=== PATIENT | male | born 1960 | race Caucasian/White ===

== ENCOUNTER 2017-01-31 21:33 | Inpatient (IN) | payer BC ==
[~2017-01-31] VITALS: Ht 167.6 cm; Wt 72.6 kg
[~2017-01-31 21:33] MED LIST: HYDR-4100 PO; METH750T3 PO; NEU300 PO; SERT100T PO
--- NOTE | 2017-01-31 21:43 | NUR ---
Patient to ER bed 1 to gown for evaluation. Side rails up. Report given to Lia MCCOLLUM.
[2017-01-31 21:48] VITALS: BP_SYST 137
--- NOTE | 2017-01-31 21:53 | NUR ---
Patient to ER C/O worsening symptoms. States that he has been sick for 2 weeks with cough and not feeling good, went to urgent care and got ABX shot and ABX RX but not getting any better. AAOx4, diminished lung sounds, no acute distress.
--- NOTE | 2017-01-31 22:26 | NUR ---
ER MD Segundo at bedside for evaluation
--- NOTE | 2017-01-31 23:05 | NUR ---
# 20 gauge angiocath placed to left ac. Use of asceptic technique. Opsite placed over site. Blood return noted. Blood for lab drawn from site. Flushed with 10 cc of normal saline. No evidence of infiltration noted. Patient tolerated well.
[2017-01-31] MEDS ORDERED: NACL 0.9% 1,000 ML IV ONE (23:06)
[2017-01-31] MEDS ORDERED: LEVOFLOXACIN 500 MG TABLET PO ONE (23:15)
[2017-01-31] MEDS ORDERED: IPRATROPIUM BROM 0.5 MG/2.5 ML VIAL.NEB (ATROVENT) IH ONE (23:15)
[2017-01-31] MEDS ORDERED: LevALBUTEROL HCL 1.25 MG/0.5 ML *CONC.* VIAL.NEB (XOPENEX CONC.) INH ONE (23:15)
[2017-01-31 23:35] LABS: HEMATOCRIT 47.2 % (36-54); HEMOGLOBIN 15.9 g/dL (14.0-18.0); MEAN CORPUSCULAR HEMOGLOBIN 31 pg (27-31); MEAN CORPUSCULAR HGB CONC 34 % (32-36); MEAN CORPUSCULAR VOLUME 91 fL (79.0-98.0); PLATELET COUNT (AUTO) 350 K/uL (130-430); RED BLOOD CELL COUNT(AUTO) 5.18 MIL/uL (4.2-6.2); RED CELL DISTRIBUTION WIDTH 14.7 % (9.0-15.0); WHITE BLOOD COUNT (AUTO) 27.4 K/uL (4.8-10.8)
[2017-01-31 23:41] LABS: CALCIUM 8.3 mg/dL (8.4-11.0); CREATININE 1.42 mg/dL (0.55-1.30); POTASSIUM 4.1 mmol/L (3.5-5.1)
[2017-01-31 23:46] LABS: ALBUMIN 3.7 g/dL (3.4-4.8); TOTAL BILIRUBIN 1.2 mg/dL (0.0-1.0); TOTAL PROTEIN, SERUM 7.3 g/dL (6.4-8.3)
[2017-01-31 23:50] LABS: ATYPICAL LYMPHOCYTES % 0 % (0-0); BAND % (MANUAL) 7 % (0-6); BASOPHILS % (MANUAL) 0 % (0-2); EOSINOPHILS % (MANUAL) 0 % (0-7); LYMPHOCYTES % (MANUAL) 8 % (20-46); MONOCYTES % (MANUAL) 3 % (0-11)
[2017-02-01] VITALS (8 sets, daily range): BP systolic 123–141
[2017-02-01] MEDS ORDERED: LR 1,000 ML IV ONE
[2017-02-01] MEDS ORDERED: IPRATROPIUM BROM 0.5 MG/2.5 ML VIAL.NEB (ATROVENT) INH PRN
[2017-02-01] MEDS ORDERED: ACETAMINOPHEN 325 MG TABLET PO PRN
[2017-02-01] MEDS ORDERED: TEMAZEPAM 15 MG CAPSULE PO PRN
[2017-02-01] MEDS ORDERED: ALBUTEROL SULFATE 0.083% 2.5 MG/3 ML VIAL.NEB INH PRN
--- NOTE | 2017-02-01 00:04 | NUR ---
Medication reconciliation completed with information provided by patient. Any prior medication reconciliation on file was reviewed and corrected.
--- NOTE | 2017-02-01 00:14 | NUR ---
Patient will be admitted to care of DR SAUCEDO. Admitted to [facility] IN unit. Will go to room 135. Belongings list completed. Summary report printed. Report given to CHUN.
--- NOTE | 2017-02-01 00:14 | NUR ---
Transfer to [facility]. IV present no sign or symptom of infiltration.
--- NOTE | 2017-02-01 00:25 | NUR ---
ADMISSION NOTE Received patient from ER via gurney under the care of Dr Clifton. Patient admitted with diagnosis of Pneumonia and COPD EXACERBATION . Patient is awake, alert, oriented X 4. Patient oriented to hospital room, call light, toileting, pain management and safety-teach back done. Patient informed that HIS nurse will be Anjali MCCOLLUM and that his room number is [id number]. Call light within reach. at bedside.
[2017-02-01] MEDS: HYDROcodone/ACETAMIN 10-325 MG TAB PO PRN ×2 (00:47→20:54)
--- NOTE | 2017-02-01 00:55 | NUR ---
PAGED PAGED STEPHEN HASKINS AT [phone] SPOKE WITH CHASE.
[2017-02-01] MEDS ORDERED: AZITHROMYCIN 500 MG/VIAL (ZITHROMAX) IV ONE (01:42)
--- NOTE | 2017-02-01 02:00 | NUR ---
Rounds Patient is currently resting in bed. No sings of distress noted.
[2017-02-01] MEDS: ALBUTEROL SULFATE 0.083% 2.5 MG/3 ML VIAL.NEB INH SCH ×4 (03:21→15:00)
[2017-02-01] MEDS: IPRATROPIUM BROM 0.5 MG/2.5 ML VIAL.NEB (ATROVENT) INH SCH ×4 (03:21→15:00)
--- NOTE | 2017-02-01 04:00 | NUR ---
Rounds Patient is currently resting in bed. call light is within reach.
--- NOTE | 2017-02-01 06:30 | NUR ---
Closing Note Report given to am RN. Patient is in stable condition. IV is on the LFA 20g running LR @80ml/hr. call light is within reach. Bed alarm is on.
--- NOTE | 2017-02-01 07:43 | NUR ---
AM Round: Received pt sitting up in bed. No acute signs of distress noted at this time. IV intact to LUE with no redness or swelling noted to site. Pt denies pain. Call light in reach. Continue to monitor pt closely
[2017-02-01] MEDS: cefTRIAXone 1 GM IVPB PREMIX 50 ML IV SCH ×2 (09:14→20:53)
--- NOTE | 2017-02-01 09:15 | NUR ---
RN Rounds: Am meds given per MD order. Pt tolerates well via IV. No acute signs of distress noted. Call light in reach. Bed alarm on. Continue to monitor.
[2017-02-01] MEDS ORDERED: SERTRALINE HCL 50 MG TABLET PO ONE (09:45)
[2017-02-01] MEDS ORDERED: GABAPENTIN 300 MG CAPSULE PO ONE (09:45)
[2017-02-01] MEDS ORDERED: METHOCARBAMOL 500 MG TABLET PO ONE (09:45)
[2017-02-01] MEDS ORDERED: PROMETHAZINE-DM 6.25 MG-15 MG/5 ML UDC PO PRN (10:00)
[2017-02-01] MEDS ORDERED: guaiFENesin ER 600 MG TAB PO ONE (11:15)
--- NOTE | 2017-02-01 11:56 | NUR ---
Rounds: Pt sitting semi-fowlers in bed. No acute signs of distress noted. IV intact and infusing antibiotic well at this time to LUE with no redness or swelling noted to site. Call light in reach. Continue to monitor pt closely.
[2017-02-01] MEDS ORDERED: FLUCONAZOLE 200 mg/ NS 100 ML IV ONE (12:00)
--- NOTE | 2017-02-01 13:36 | NUR ---
Rounds: Pt sitting semi-fowlers in bed. No acute signs of distress noted at this time. Breathing even and unlabored on room air. Call light in reach. Bed alarm on. Continue to monitor.
[2017-02-01] MEDS: METHOCARBAMOL 500 MG TABLET PO SCH ×3 (14:03→20:53)
[2017-02-01] MEDS: GABAPENTIN 300 MG CAPSULE PO SCH (14:05)
--- NOTE | 2017-02-01 15:24 | NUR ---
Rounds: Pt laying flat in bed and sleeping. Breathing even and unlabored on room air. No acute signs of distress noted at this time. IV intact to LUE with no redness or swelling noted to site. Call light in reach. Bed alarm on. Continue to monitor pt closely.
--- NOTE | 2017-02-01 17:15 | NUR ---
Rounds: Pt sitting semi-fowlers in bed. No acute signs of distress noted,. Pt is sleeping at this time, breathing even and unlabored on room air. Pt remains calm and cooperative and he is able to make needs known. Continue to monitor.
--- NOTE | 2017-02-01 18:54 | NUR ---
Closing Note: Pt sitting semi-fowlers in bed. No acute signs of distress noted at this time. IV intact to RUE SL and flushing well. Pt denies pain. Call light in reach. Family at bedside. Endorse plan of care to NOC RN.
--- NOTE | 2017-02-01 19:35 | NUR ---
OPENING NOTES RECEIVED REPORT FROM DAYSHIFT NURSE AT BEDSIDE. PATIENT IS RESTING IN SEMI-CASEY'S. KYLER CUTE S/S OF DISTRESS NOTED. FAMILY AT BEDSIDE. BED IN LOWEST POSITION, BED ALARM SET, CALL LIGHT WITHIN REACH.
[2017-02-01] MEDS: guaiFENesin ER 600 MG TAB PO SCH (20:53)
--- NOTE | 2017-02-01 21:24 | NUR ---
DR. SAUCEDO AWARE OF PT'S BLISTERS AWARE THAT PT'S POINTED OUT PT HAS "NEW BLISTERS" ON HIS RIGHT NECK AND ONE ON HIS RIGHT CHEEK. MD ORDERED TO CULTURE THEM. ORDERS IN PLACE.
[2017-02-01] MEDS: AZITHROMYCIN 500 MG in NS 250 ML IV SCH ×3 (23:28)
--- NOTE | 2017-02-01 23:30 | NUR ---
ROUNDS PATIENT IS SLEEPING COMFORTABLY. NO ACUTE SIGNS OR SYMPTOMS OF DISTRESS NOTED. VISIBLE RISE AND FALL OF CHEST, AUDIBLE SNORING. IV PATENT AND RUNNING. BED IN LOWEST POSITION, BED ALARM ON, CALL LIGHT WITHIN REACH. WILL CONTINUE TO MONITOR.
[2017-02-02] VITALS: BP_SYST 128
--- NOTE | 2017-02-02 01:30 | NUR ---
ROUNDS PATIENT IS IN PAIN /10 AND REQUESTING PAIN MEDICATION. PAIN MEDICATION PROVIDED ORDERED. NO ACUTE SIGNS OR SYMPTOMS OF DISTRESS NOTED. IV PATENT AND RUNNING. BED IN LOWEST POSITION, BED ALARM ON, CALL LIGHT WITHIN REACH. WILL CONTINUE TO MONITOR.
[2017-02-02] MEDS: HYDROcodone/ACETAMIN 10-325 MG TAB PO PRN ×5 (02:00→19:24)
--- NOTE | 2017-02-02 03:30 | NUR ---
ROUNDS PATIENT IS SLEEPING COMFORTABLY. VISIBLE RISE AND FALL OF CHEST, AUDIBLE SNORING. NO ACUTE SIGNS OR SYMPTOMS OF DISTRESS NOTED. IV PATENT AND RUNNING. BED IN LOWEST POSITION, BED ALARM ON, CALL LIGHT WITHIN REACH. WILL CONTINUE TO MONITOR.
[2017-02-02] MEDS: ALBUTEROL SULFATE 0.083% 2.5 MG/3 ML VIAL.NEB INH SCH ×8 (03:31→23:00)
[2017-02-02] MEDS: IPRATROPIUM BROM 0.5 MG/2.5 ML VIAL.NEB (ATROVENT) INH SCH ×8 (03:31→23:00)
[2017-02-02 04:00] VITALS: BP_SYST 139; BP_SYST 141
--- NOTE | 2017-02-02 05:50 | NUR ---
RADIOLOGY PATIENT PICKED UP TO BE TAKEN FOR A 2-DAY XRAY,
--- NOTE | 2017-02-02 06:40 | NUR ---
CLOSING NOTES NO S/S OF DISTRESS NOTED. WILL ENDORSE CARE TO DAY SHIFT NURSE. FALL PRECAUTIONS IN PLACE, CALL LIGHT WITHIN REACH.
[2017-02-02 07:48] LABS: ALBUMIN 2.7 g/dL (3.4-4.8); CALCIUM 7.9 mg/dL (8.4-11.0); CREATININE 0.93 mg/dL (0.55-1.30); TOTAL BILIRUBIN 0.3 mg/dL (0.0-1.0)
[2017-02-02 08:00] VITALS: BP_SYST 142
--- NOTE | 2017-02-02 08:00 | NUR ---
PATIENT A/OX4, AMBULATORY. IV ON LEFT ARM, #20, SL. AMBULATORY. V/S STABLE. NO SIGNS OF DISTRESS NOTED. CALL LIGHT IN PLACE, BED AT LOWEST POSITION, WILL CONTINUE TO MONITOR.
[2017-02-02 08:08] LABS: BASOPHILS % (AUTO) 0.3 % (0.0-2.0); EOSINOPHILS # (AUTO) 0.1 K/uL (0.0-0.4); EOSINOPHILS % (AUTO) 1.1 % (0.0-4.0); HEMATOCRIT 44.3 % (36-54); HEMOGLOBIN 14.2 g/dL (14.0-18.0); LYMPHOCYTES # (AUTO) 2.3 K/uL (1.0-5.5); LYMPHOCYTES % (AUTO) 29.1 % (20.5-51.5); MEAN CORPUSCULAR HEMOGLOBIN 30 pg (27-31); MEAN CORPUSCULAR HGB CONC 32 % (32-36); MONOCYTES # (AUTO) 0.5 K/uL (0.0-1.0); MONOCYTES % (AUTO) 6.4 % (1.7-9.3); NEUTROPHILS # (AUTO) 5.1 K/uL (1.8-7.7); NEUTROPHILS % (AUTO) 63.1 % (40.0-70.0); PLATELET COUNT (AUTO) 304 K/uL (130-430); RED BLOOD CELL COUNT(AUTO) 4.77 MIL/uL (4.2-6.2); RED CELL DISTRIBUTION WIDTH 14.8 % (9.0-15.0)
[2017-02-02 08:14] LABS: MEAN CORPUSCULAR VOLUME 93 fL (79.0-98.0)
[2017-02-02 08:36] LABS: IRON (SERUM) 86 mcg/dL (59-158); TOTAL IRON BIND. CAPACITY 239 ug/dL (250-450)
[2017-02-02] MEDS: guaiFENesin ER 600 MG TAB PO SCH ×2 (08:44→21:26)
[2017-02-02] MEDS: METHOCARBAMOL 500 MG TABLET PO SCH ×4 (08:44→21:26)
[2017-02-02] MEDS: cefTRIAXone 1 GM IVPB PREMIX 50 ML IV SCH ×2 (08:44→21:26)
[2017-02-02] MEDS: SERTRALINE HCL 50 MG TABLET PO SCH (08:45)
[2017-02-02] MEDS: FLUCONAZOLE 200 mg/ NS 100 ML IV SCH (10:22)
--- NOTE | 2017-02-02 10:28 | NUR ---
PATIENT IS RESTING, NO SIGNS OF DISTRESS NOTED AT THIS TIME.
[2017-02-02 12:00] VITALS: BP_SYST 126
--- NOTE | 2017-02-02 13:30 | NUR ---
PATIENT C/O BACK PAIN, NORCO 10 PO IS GIVEN PER ORDER. WILL REASSESS.
[2017-02-02] MEDS: GABAPENTIN 300 MG CAPSULE PO SCH (14:19)
--- NOTE | 2017-02-02 15:48 | NUR ---
PATIENT IS RESTING, NO SIGNS OF DISTRESS NOTED.
[2017-02-02] MEDS ORDERED: POTASSIUM CHLORIDE 20 MEQ TAB.PRT.SR PO SCH (16:15)
--- NOTE | 2017-02-02 18:00 | NUR ---
PATIENT C/O BACK PAIN; NORCO 10 IS GIVEN PO PER DR ORDER, WILL REASSESS.
[2017-02-02 18:13] VITALS: BP_SYST 128
--- NOTE | 2017-02-02 20:10 | NUR ---
OPENING NOTES PATIENT IS RESTING COMFORTABLY WATCHING TELEVISION. IV IS INFUSING. NO SIGNS OR SYMPTOMS OF ACUTE DISTRESS NOTED. BED IN LOWEST POSITION, BED ALARM ON, CALL LIGHT WITHIN REACH. WILL CONTINUE TO MONITOR.
[2017-02-02 20:25] VITALS: BP_SYST 136
[2017-02-02] MEDS: TEMAZEPAM 15 MG CAPSULE PO SCH (21:26)
[2017-02-02] MEDS: POTASSIUM CHLORIDE 20 MEQ TAB.PRT.SR PO SCH (21:27)
--- NOTE | 2017-02-02 22:10 | NUR ---
ROUNDS PATIENT IS SLEEPING, VISIBLE RISE AND FALL OF CHEST, AND AUDIBLE SNORING. NO ACUTE SIGNS OR SYMPTOMS OF DISTRESS NOTED. IV PATENT AND RUNNING. BED IN LOWEST POSITION, BED ALARM ON, CALL LIGHT WITHIN REACH. WILL CONTINUE TO MONITOR.
[2017-02-03] MEDS: HYDROcodone/ACETAMIN 10-325 MG TAB PO PRN ×5 (00:09→21:33)
--- NOTE | 2017-02-03 00:10 | NUR ---
ROUNDS PATIENT IS IN PAIN 6/10 AND REQUESTING PAIN MEDICATION. PAIN MEDICATION PROVIDED ORDERED. WILL REASSESS. NO ACUTE SIGNS OR SYMPTOMS OF DISTRESS NOTED. IV PATENT AND RUNNING. BED IN LOWEST POSITION, BED ALARM ON, CALL LIGHT WITHIN REACH. WILL CONTINUE TO MONITOR.
[2017-02-03 00:13] VITALS: BP_SYST 140
[2017-02-03] MEDS: AZITHROMYCIN 500 MG in NS 250 ML IV SCH (00:15)
--- NOTE | 2017-02-03 02:10 | NUR ---
ROUNDS PATIENT IS SLEEPING COMFORTABLY. RISE AND FALL OF CHEST NOTED. IV PATENT AND RUNNING. BED IN LOWEST POSITION, BED ALARM ON, CALL LIGHT WITHIN REACH. WILL CONTINUE TO MONITOR.
[2017-02-03] MEDS: ALBUTEROL SULFATE 0.083% 2.5 MG/3 ML VIAL.NEB INH SCH ×6 (03:00→23:30)
[2017-02-03] MEDS: IPRATROPIUM BROM 0.5 MG/2.5 ML VIAL.NEB (ATROVENT) INH SCH ×6 (03:00→23:30)
[2017-02-03 05:07] VITALS: BP_SYST 126
--- NOTE | 2017-02-03 06:32 | NUR ---
ROUNDS PATIENT IS COMPLAINING OF PAIN 6/10. PATIENT PROVIDED NORCO ORDERED. IV IS RUNNING AND PATENT, NO SIGNS OF INFILTRATION NOTED. BED IN LOWEST POSITION, BED ALARM ON, CALL LIGHT WITHIN REACH. WILL ENDORSE CARE TO DAY SHIFT NURSE.
[2017-02-03 07:22] LABS: BASOPHILS % (AUTO) 0.2 % (0.0-2.0); EOSINOPHILS # (AUTO) 0.2 K/uL (0.0-0.4); EOSINOPHILS % (AUTO) 1.7 % (0.0-4.0); HEMATOCRIT 45.2 % (36-54); LYMPHOCYTES # (AUTO) 1.9 K/uL (1.0-5.5); LYMPHOCYTES % (AUTO) 20.5 % (20.5-51.5); MEAN CORPUSCULAR HEMOGLOBIN 31 pg (27-31); MEAN CORPUSCULAR HGB CONC 33 % (32-36); MEAN CORPUSCULAR VOLUME 92 fL (79.0-98.0); MONOCYTES # (AUTO) 0.2 K/uL (0.0-1.0); MONOCYTES % (AUTO) 2.1 % (1.7-9.3); NEUTROPHILS % (AUTO) 75.5 % (40.0-70.0); PLATELET COUNT (AUTO) 324 K/uL (130-430); RED BLOOD CELL COUNT(AUTO) 4.92 MIL/uL (4.2-6.2); RED CELL DISTRIBUTION WIDTH 15.4 % (9.0-15.0); WHITE BLOOD COUNT (AUTO) 9.3 K/uL (4.8-10.8)
[2017-02-03 07:37] LABS: ALBUMIN 2.7 g/dL (3.4-4.8); CALCIUM 8.1 mg/dL (8.4-11.0); CREATININE 0.89 mg/dL (0.55-1.30); POTASSIUM 3.6 mmol/L (3.5-5.1); TOTAL BILIRUBIN 0.2 mg/dL (0.0-1.0); TOTAL PROTEIN, SERUM 6.2 g/dL (6.4-8.3)
[2017-02-03 08:00] VITALS: BP_SYST 145
--- NOTE | 2017-02-03 08:00 | NUR ---
OPENING NOTE PATIENT IS AWAKE, ALERT, ORIENTED. REPORTS PAIN 4/10 AT THIS TIME. STATES HE IS NOT SURE HE NEEDS MEDICATION AT THIS TIME. VITALS OBTAINED. LUNG SOUNDS CLEAR, DIMINISHED IN BASES.
[2017-02-03] MEDS: guaiFENesin ER 600 MG TAB PO SCH ×2 (08:52→21:37)
[2017-02-03] MEDS: POTASSIUM CHLORIDE 20 MEQ TAB.PRT.SR PO SCH ×2 (08:52→21:37)
[2017-02-03] MEDS: METHOCARBAMOL 500 MG TABLET PO SCH ×4 (08:52→21:41)
[2017-02-03] MEDS: SERTRALINE HCL 50 MG TABLET PO SCH (08:52)
[2017-02-03] MEDS: FLUCONAZOLE 200 mg/ NS 100 ML IV SCH (08:56)
[2017-02-03] MEDS: cefTRIAXone 1 GM IVPB PREMIX 50 ML IV SCH ×2 (08:56→21:34)
--- NOTE | 2017-02-03 09:45 | NUR ---
PT STATES IV IS LEAKING, AND THAT IT IS PAINFUL JUST ABOVE INSERTION. IV STOPPED AND WILL RESTART LATER.
--- NOTE | 2017-02-03 12:32 | NUR ---
PATIENT MEDICATED FOR PAIN, AND PER ORDERS. IV RESTARTED Thi BACON RN. PT IN NO APPARENT DISTRESS.
[2017-02-03] MEDS: GABAPENTIN 300 MG CAPSULE PO SCH (14:43)
--- NOTE | 2017-02-03 14:48 | NUR ---
PT MEDICATED PER ORDERS
--- NOTE | 2017-02-03 15:25 | NUR ---
DR SAUCEDO IN TO SEE PATIENT. PER MD PATIENT MAY GO HOME TOMORROW EVENING
--- NOTE | 2017-02-03 15:53 | NUR ---
PATIENT GIVEN INCENTIVE SPIROMETER. INSTRUCTED ON PROPER USE AND TO USE IT 10X/HR. PATIENT INHALED 1500ML ON FIRST TRY. VERBALIZED UNDERSTANDING
[2017-02-03] MEDS ORDERED: MILK OF MAGNESIA 30 ML UDC PO PRN (16:00)
[2017-02-03] MEDS ORDERED: DOCUSATE SODIUM 250 MG CAPSULE PO ONE (16:15)
[2017-02-03] MEDS ORDERED: methylPREDNISolone SOD SUCC 40 MG/ML VIAL IVP ONE (16:15)
[2017-02-03 17:10] VITALS: BP_SYST 135
[2017-02-03] MEDS: BISACODYL 5 MG TABLET.DR (DULCOLAX) PO PRN (17:31)
[2017-02-03 19:00] VITALS: BP_SYST 140
--- NOTE | 2017-02-03 19:15 | NUR ---
change of shift.pt.intial assessment.pt.presents stable status.iv fluids 2 b converted 2 iv lock.2 review order. no c/o pain.room air.iv access:location:lt.hand.
[2017-02-03 20:00] VITALS: BP_SYST 140
--- NOTE | 2017-02-03 20:00 | NUR ---
pt.assessed.v/s assessed:values w/in normal limits.iv fluids converted 2 iv lock.room air o2 sat%=96%.pt.ambulatory. i apprised pt.of the availability of snacks:pt.requested snacks i have provided the snacks.call light placed w/in pt's reach.
--- NOTE | 2017-02-03 21:00 | NUR ---
2100p medications administered.call light w/in pt's reach. Addendum: 02/04/17 at 0911 by Sukh Jefferson RN rocephin:abx:ivpb administered.iv fluids reconnected.conveyed 2 the pt.the iv fluids 2 b removed post administration of ivpb.
[2017-02-03] MEDS: methylPREDNISolone SOD SUCC 40 MG/ML VIAL IVP SCH (21:35)
--- NOTE | 2017-02-03 21:35 | NUR ---
pt.administered norco:10/325mg po 1 tab per pain. f/u re:pain med efficacy / protocol.
[2017-02-03] MEDS: TEMAZEPAM 15 MG CAPSULE PO SCH (21:36)
[2017-02-03] MEDS: DOCUSATE SODIUM 250 MG CAPSULE PO SCH (21:41)
--- NOTE | 2017-02-03 22:00 | NUR ---
pt.assessed.pt.presents quiescent affect;calm asleep.call light placed w/in pt's reach.
--- NOTE | 2017-02-04 | NUR ---
pt.assessed.v/s assessed:values w/in normal limits.zithromax;abx;ivpb administered:iv fluids reconnected. pt.apprised that the iv fluids 2 b removed post administration of the ivpb.call light placed w/in pt's reach.
[2017-02-04] MEDS: AZITHROMYCIN 500 MG in NS 250 ML IV SCH (00:09)
[2017-02-04 00:19] VITALS: BP_SYST 126
--- NOTE | 2017-02-04 02:00 | NUR ---
pt.assessed.pt.requested snacks.snacks provided.call light placed w/in pt's reach.iv fluids removed.
--- NOTE | 2017-02-04 04:00 | NUR ---
pt.assessed.v/s assessed:values w/in normal limits.no c/o pain,nausea.pt.presents quiescent affect; calm,asleep.call light placed w/in pt's reach.
[2017-02-04 04:42] VITALS: BP_SYST 142
[2017-02-04] MEDS: IPRATROPIUM BROM 0.5 MG/2.5 ML VIAL.NEB (ATROVENT) INH SCH ×3 (05:17→11:35)
[2017-02-04] MEDS: ALBUTEROL SULFATE 0.083% 2.5 MG/3 ML VIAL.NEB INH SCH ×3 (05:17→11:35)
--- NOTE | 2017-02-04 06:00 | NUR ---
pt.assessed.pt.presents quiescent affect;calm,asleep.no distress/discomfort manifested. call light w/in pt's reach.
[2017-02-04 08:00] VITALS: BP_SYST 152
--- NOTE | 2017-02-04 08:00 | NUR ---
OPENING NOTE PATIENT IS AWAKE, ALERT, TAKEN TO X RAY VIA WC FOR AM CXR. PT REPORTS CHRONIC BACK PAIN IS BOTHERING HIM AND IS ASKING FOR MEDICATION
[2017-02-04] MEDS: METHOCARBAMOL 500 MG TABLET PO SCH ×2 (09:00→13:58)
[2017-02-04] MEDS: DOCUSATE SODIUM 250 MG CAPSULE PO SCH (09:19)
[2017-02-04] MEDS: POTASSIUM CHLORIDE 20 MEQ TAB.PRT.SR PO SCH (09:19)
[2017-02-04] MEDS: methylPREDNISolone SOD SUCC 40 MG/ML VIAL IVP SCH (09:19)
[2017-02-04] MEDS: cefTRIAXone 1 GM IVPB PREMIX 50 ML IV SCH (09:19)
[2017-02-04] MEDS: FLUCONAZOLE 200 mg/ NS 100 ML IV SCH (09:19)
[2017-02-04] MEDS: SERTRALINE HCL 50 MG TABLET PO SCH (09:20)
[2017-02-04] MEDS: HYDROcodone/ACETAMIN 10-325 MG TAB PO PRN (09:20)
[2017-02-04] MEDS: guaiFENesin ER 600 MG TAB PO SCH (09:20)
--- NOTE | 2017-02-04 09:30 | NUR ---
LAB NOTIFIED OF MISSING METHOCARBAMOL
--- NOTE | 2017-02-04 09:33 | NUR ---
Nutrition Update Jayesh Scale 18 noted. Pt admitted for pneumonia, COPD exacerbation. Diet: regular BMI: 30.2 kg/m2 RD to follow per nutrition care standards.
[2017-02-04 12:00] VITALS: BP_SYST 151
--- NOTE | 2017-02-04 12:20 | NUR ---
AT BEDSIDE. PATIENT REMAINS IN STABLE CONDITION. NO APPARENT DISTRESS.
[2017-02-04] MEDS: BISACODYL 5 MG TABLET.DR (DULCOLAX) PO PRN (13:58)
--- NOTE | 2017-02-04 14:19 | NUR ---
DR SAUCEDO IN TO SEE PATIENT. DC ORDERS GIVEN W INSTRUCTIONS TO HAVE FOLLOW UP CXR IN ONE WEEK AND CONTINUE TO REFRAIN FROM SMOKING
[2017-02-04 14:23] VITALS: BP_SYST 114
--- NOTE | 2017-02-04 14:25 | NUR ---
DISCHARGE PATIENT GIVEN TWO PRESCRIPTIONS, INFORMATION ON DRUGS GIVEN TO PATIENT. FOLLOW UP INSTRUCTIONS AND DISEASE MANAGEMENT INSTRUCTIONS GIVEN TO PATIENT AND . BOTH VERBALIZED UNDERSTANDING. IV DCD AND PRESSURE DRESSING APPLIED. PATIENT TAKEN TO PRIVATE AUTO VIA WHEELCHAIR. ALL BELONGINGS ACCOUNTED FOR, MEDS RECONCILED.
--- NOTE | 2017-02-07 10:06 | NUR ---
Discharge Follow Up Phone Call Sterile Preparation Technician phoned patient, , on 02/05/17, 02/06/17 and 02/07/17 and left voicemail messages with offer of assistance and Social Service contact information. No further calls will be attempted.
== END 2017-02-04 14:40 | disposition home or self-care (01) | DRG 871 ==
LOC: SED 21:33 → SMU 23:59
PROVIDERS: ADMIT Internal Medicine; ATTEND Internal Medicine
DX: A41.9 Sepsis, unspecified organism (principal); J18.9 Pneumonia, unspecified organism; J96.00 Acute respiratory failure, unspecified whether with hypoxia or hypercapnia; J44.1 Chronic obstructive pulmonary disease with (acute) exacerbation; J44.0 Chronic obstructive pulmonary disease with (acute) lower respiratory infection; I10 Essential (primary) hypertension; E87.6 Hypokalemia; E11.9 Type 2 diabetes mellitus without complications; G89.4 Chronic pain syndrome; F32.9 Major depressive disorder, single episode, unspecified; F17.200 Nicotine dependence, unspecified, uncomplicated; M54.9 Dorsalgia, unspecified; Z86.73 Personal history of transient ischemic attack (TIA), and cerebral infarction without residual deficits; Z88.6 Allergy status to analgesic agent; Z88.1 Allergy status to other antibiotic agents; Z85.9 Personal history of malignant neoplasm, unspecified; Z79.899 Other long term (current) drug therapy; Z88.0 Allergy status to penicillin
CPT/HCPCS: 36415; 71010; 71020-TC; 80053; 82306; 82607; 82746; 83540-TC; 83550-TC; 83605; 83735-TC; 83880; 85007; 85025; 85027; 87040-TC; 87070-TC; 87186-TC; 87205-TC; 94640; 94760; J0456; J0696; J1030; J1450; J7030; J7050; J7120

== ENCOUNTER 2017-02-19 15:05 | Inpatient (IN) | payer BC ==
[~2017-02-19] VITALS: Ht 167.6 cm; Wt 69.9 kg
[2017-02-19 15:42] VITALS: BP_SYST 131
[2017-02-19 16:00] LABS: BASOPHILS # (AUTO) 0.1 K/uL (0.0-0.2); BASOPHILS % (AUTO) 1.4 % (0.0-2.0); EOSINOPHILS # (AUTO) 0.1 K/uL (0.0-0.4); EOSINOPHILS % (AUTO) 0.6 % (0.0-4.0); HEMATOCRIT 49.3 % (36-54); HEMOGLOBIN 16.6 g/dL (14.0-18.0); LYMPHOCYTES # (AUTO) 2.2 K/uL (1.0-5.5); LYMPHOCYTES % (AUTO) 24.5 % (20.5-51.5); MEAN CORPUSCULAR HEMOGLOBIN 31 pg (27-31); MEAN CORPUSCULAR HGB CONC 34 % (32-36); MEAN CORPUSCULAR VOLUME 91 fL (79.0-98.0); MONOCYTES # (AUTO) 0.3 K/uL (0.0-1.0); MONOCYTES % (AUTO) 3.3 % (1.7-9.3); NEUTROPHILS # (AUTO) 6.4 K/uL (1.8-7.7); NEUTROPHILS % (AUTO) 70.2 % (40.0-70.0); PLATELET COUNT (AUTO) 398 K/uL (130-430); RED CELL DISTRIBUTION WIDTH 14.4 % (9.0-15.0); WHITE BLOOD COUNT (AUTO) 9.1 K/uL (4.8-10.8)
--- NOTE | 2017-02-19 16:03 | NUR ---
New direct admission: Received 56 years old male direct admit from Dr. Clifton's office due to PNA via ambulatory at 15.50 PM. Patient is alert, oriented x4, denies any pain or discomfort.
--- NOTE | 2017-02-19 16:05 | NUR ---
Start IV lock on left forearm # 20 G, and get blood spacemen for lab.
--- NOTE | 2017-02-19 16:07 | NUR ---
MD round: Dr Clifton is visiting with new orders.
[2017-02-19 16:14] LABS: CALCIUM 8.9 mg/dL (8.4-11.0); CREATININE 1.57 mg/dL (0.55-1.30)
--- NOTE | 2017-02-19 16:15 | NUR ---
INITIAL NOTE Received pt in bed, no s/s of distress or sob noted, pt has no c/o pain at this time, pt in stable condition, pt aaox4, verbal. Dr Clifton at bedside examining patient, new orders written. Bed at lowest position, call light within reach, will continue to monitor pt for any changes, fall precautions in place.
[2017-02-19 16:27] LABS: ALBUMIN 3.8 g/dL (3.4-4.8); TOTAL BILIRUBIN 0.3 mg/dL (0.0-1.0); TOTAL PROTEIN, SERUM 7.1 g/dL (6.4-8.3)
[2017-02-19 16:29] LABS: POTASSIUM 2.6 mmol/L (3.5-5.1)
[2017-02-19] MEDS ORDERED: POTASSIUM CHLORIDE 20 MEQ TAB.PRT.SR PO ONE (16:30)
[2017-02-19] MEDS ORDERED: TEMAZEPAM 15 MG CAPSULE PO PRN (16:30)
[2017-02-19] MEDS: LR 1,000 ML IV SCH (16:38)
[2017-02-19] MEDS ORDERED: IPRATROPIUM/ALBUTEROL SULFATE 3 ML AMPUL.NEB INH ONE (16:45)
[2017-02-19] MEDS ORDERED: PANTOPRAZOLE SODIUM 40 MG/VIAL (PROTONIX) IVP ONE ×2 (16:45)
[2017-02-19 18:02] VITALS: BP_SYST 131
[2017-02-19] MEDS: GABAPENTIN 300 MG CAPSULE PO SCH ×2 (18:03→22:16)
[2017-02-19] MEDS: METHOCARBAMOL 500 MG TABLET PO SCH ×2 (18:04→22:15)
[2017-02-19] MEDS: HYDROcodone/ACETAMIN 10-325 MG TAB PO SCH ×2 (18:04→22:16)
--- NOTE | 2017-02-19 18:37 | NUR ---
Closing Note Pt in bed, no s/s of distress or sob noted, pt has no c/o pain at this time, pt in stable condition, pt aaox4, verbal. Bed at lowest position, call light within reach, will endorse care of pt to incoming nurse, fall precautions in place.
[2017-02-19] MEDS: IPRATROPIUM/ALBUTEROL SULFATE 3 ML AMPUL.NEB INH SCH ×2 (19:56→23:31)
--- NOTE | 2017-02-19 20:30 | NUR ---
Initial note A/O x 3, no SOB, no chest pain, c/o back pain 2/10. Skin warm to touch, IV at L FA, patent, continued LR @ 80 ml/hr. Clear lung sounds, diminished lung sounds at lower lobes. Active bowel sounds. Patient had some dry cough, but no sputum collected yet. He is aware of sputum collection. Call light within reach, SCD in place, bed at lowest position, will continue to monitor patient.
[2017-02-19] MEDS: PANTOPRAZOLE SODIUM 40 MG/VIAL (PROTONIX) IVP SCH (21:01)
[2017-02-19] MEDS: POTASSIUM CHLORIDE 20 MEQ TAB.PRT.SR PO SCH (21:02)
[2017-02-19 21:10] VITALS: BP_SYST 124
--- NOTE | 2017-02-19 21:57 | NUR ---
Consult called Reason For Consultation: Epigastric Pain Was person notified: Chelsea Was consult called:y Consulting Physician: Dr. Gutierrez online content developer Wire Charger Specialty:GJuan C Wire Charger
--- NOTE | 2017-02-19 22:10 | NUR ---
Rounds Sleeping, no SOB, no chest pain, c/o back pain 04/06, scheduled pain med given. IV at L FA, patent, continued LR @ 80 ml/hr. Patient had some dry cough, but no sputum collected yet. He is aware of sputum collection. Call light within reach, will continue to monitor patient.
--- NOTE | 2017-02-20 00:08 | NUR ---
Rounds Sleeping, no SOB, no chest pain, no grimacing. IV at L FA, patent, continued LR @ 80 ml/hr. No cough noted at this time. No sputum collected yet. Call light within reach, bed at lowest position, SCD in place, will continue to monitor patient.
[2017-02-20 00:30] VITALS: BP_SYST 130
[2017-02-20] MEDS: GABAPENTIN 300 MG CAPSULE PO SCH ×6 (02:43→23:18)
[2017-02-20] MEDS: METHOCARBAMOL 500 MG TABLET PO SCH ×6 (02:43→23:18)
[2017-02-20] MEDS: HYDROcodone/ACETAMIN 10-325 MG TAB PO SCH ×6 (02:43→23:18)
--- NOTE | 2017-02-20 02:50 | NUR ---
Sputum sample Sent over sputum sample, confirmed with LAB, the quantity is empty to test sputum culture.
[2017-02-20] MEDS: IPRATROPIUM/ALBUTEROL SULFATE 3 ML AMPUL.NEB INH SCH ×6 (03:00→23:19)
--- NOTE | 2017-02-20 04:15 | NUR ---
Rounds Sleeping, no SOB, no chest pain, no grimacing. IV at L FA, patent, continued LR @ 80 ml/hr. No cough noted at this time. Call light within reach, bed at lowest position, SCD in place, will continue to monitor patient.
[2017-02-20 04:30] VITALS: BP_SYST 114
[2017-02-20] MEDS: LR 1,000 ML IV SCH ×2 (04:38→20:03)
--- NOTE | 2017-02-20 06:24 | NUR ---
Closing note Sleeping, arousable, no SOB, no chest pain, c/o lower back pain, scheduled pain med (Robaxin, Neurontin, and Gordon) given. IV at L FA, patent, continued LR @ 80 ml/hr. No cough noted at this time. Call light within reach, bed at lowest position, SCD in place, will give report to incoming nurse.
--- NOTE | 2017-02-20 07:30 | NUR ---
rn notes: patient is aaox 4. afebrile. vss stable. lungs bilaterally clear. abdomen soft and non distended. no skin breakdown noted. patient is ambulatory. bed in low position. has iv access on the left forearm #20. saline lock. call lights within reach. safety measures maintained. informed patient to call for assistance. will have breakfast then on npo status. no pain nor distress noted.
[2017-02-20 08:04] VITALS: BP_SYST 107
--- NOTE | 2017-02-20 08:09 | NUR ---
patient is stable. afebrile. vss stable. able to have breakfast tolerating well. no nausea/vomitting noted. npo after breakfast and egd procedure in pm.
--- NOTE | 2017-02-20 08:48 | NUR ---
Nutrition Update Jayesh Scale 18 noted. Pt admitted for pneumonia. Diet: NPO BMI: 24.9 kg/m2 RD to follow per nutrition care standards.
--- NOTE | 2017-02-20 09:00 | NUR ---
due medication not given yet. patient is npo for upper endoscopy procedure this pm.
--- NOTE | 2017-02-20 10:46 | NUR ---
consent signed for upper endoscopy at this time. refused to changed the gown he said later on. I do want to rest and relax. made comfortable.
[2017-02-20 12:00] VITALS: BP_SYST 118
--- NOTE | 2017-02-20 12:30 | NUR ---
milk pickup truck driver by gi lab for upper endoscopy procedure.
[2017-02-20] MEDS ORDERED: MIDAZOLAM HCL 5 MG/5 ML VIAL ONE (12:34)
[2017-02-20] MEDS: CHOLECALCIFEROL (VITAMIN D3) 2,000 UNIT TABLET PO SCH (12:45)
[2017-02-20] MEDS: MULTIVITAMINS TAB 1 TABLET PO SCH ×2 (12:45→20:11)
[2017-02-20] MEDS: MIDAZOLAM HCL 5 MG/5 ML VIAL ONE ×5 (13:23→13:35)
[2017-02-20] MEDS: MEPERIDINE HCL/PF 100 MG/ML AMP ONE ×2 (13:23→13:25)
[2017-02-20 13:27] LABS: BASOPHILS # (AUTO) 0.1 K/uL (0.0-0.2); BASOPHILS % (AUTO) 1.8 % (0.0-2.0); EOSINOPHILS # (AUTO) 0.1 K/uL (0.0-0.4); EOSINOPHILS % (AUTO) 1.3 % (0.0-4.0); HEMATOCRIT 45.3 % (36-54); HEMOGLOBIN 14.9 g/dL (14.0-18.0); LYMPHOCYTES # (AUTO) 2.6 K/uL (1.0-5.5); MEAN CORPUSCULAR HEMOGLOBIN 30 pg (27-31); MEAN CORPUSCULAR HGB CONC 33 % (32-36); MEAN CORPUSCULAR VOLUME 92 fL (79.0-98.0); MONOCYTES # (AUTO) 0.6 K/uL (0.0-1.0); MONOCYTES % (AUTO) 7.7 % (1.7-9.3); NEUTROPHILS # (AUTO) 3.8 K/uL (1.8-7.7); NEUTROPHILS % (AUTO) 53.2 % (40.0-70.0); PLATELET COUNT (AUTO) 365 K/uL (130-430); RED BLOOD CELL COUNT(AUTO) 4.91 MIL/uL (4.2-6.2); RED CELL DISTRIBUTION WIDTH 14.7 % (9.0-15.0); WHITE BLOOD COUNT (AUTO) 7.2 K/uL (4.8-10.8)
--- NOTE | 2017-02-20 13:30 | NUR ---
patient came back from Gi lab. stable.
[2017-02-20 13:35] LABS: CALCIUM 8.4 mg/dL (8.4-11.0); CREATININE 1.22 mg/dL (0.55-1.30); POTASSIUM 3.2 mmol/L (3.5-5.1)
[2017-02-20] MEDS ORDERED: MAGNESIUM SULFATE IV ONE ×4 (13:45)
[2017-02-20] MEDS ORDERED: POTASSIUM CHLORIDE IV ONE ×4 (13:45)
[2017-02-20] MEDS ORDERED: [UNRECOGNIZED DRUG - OTHER] IV ONE ×4 (13:45)
--- NOTE | 2017-02-20 15:00 | NUR ---
due medication given at this time.
[2017-02-20] MEDS: PANTOPRAZOLE SODIUM 40 MG/VIAL (PROTONIX) IVP SCH ×2 (15:43→20:11)
[2017-02-20] MEDS: SERTRALINE HCL 50 MG TABLET PO SCH (15:45)
[2017-02-20] MEDS: LACTOBACILLUS RHAMNOSUS GG 1 CAP CAPSULE PO SCH ×2 (15:46→20:11)
[2017-02-20] MEDS: POTASSIUM CHLORIDE 20 MEQ TAB.PRT.SR PO SCH ×2 (15:46→20:11)
--- NOTE | 2017-02-20 16:30 | NUR ---
rounds assists on adls. no pain at this time.
--- NOTE | 2017-02-20 18:00 | NUR ---
eating his dinner tolerating well.
--- NOTE | 2017-02-20 19:25 | NUR ---
sbar report given to incoming nurse El MCCOLLUM
--- NOTE | 2017-02-20 19:35 | NUR ---
INITIAL ASSESSMENT: RECEIVE PT IN BED, AWAKE, ALERT AND ORIENTED X4, C/O PAIN 04/06 ON LOWER BACK, WILL ADMINISTERED MEDICATION ORDER, PT BREATHING EVEN AND NON LABORED IN ROOM AIR, VITAL STABLE, SKIN CLEAR, WARM AND DRY, DENIES ANY CHEST PAIN OR PRESSURE, IV ON LEFT FOREARM 20 G, INFUSING K-RIDER AT THIS TIME, INFUSING WELL, LUNGS CLEAR, ABDOMEN SOFT AND NON DISTENDED, ACTIVE BOWEL SOUND THROUGHOUT ABDOMEN. PT WITH SOME DRY COUGH ON AND OFF, CALL LIGHT WITH IN REACH, EDUCATED TO PAIN MEDICATION, SIDE EFFECT AND CALL NURSE TO BEFORE GETTING OUT OF BED, SCD ON PLACE, BED ALARM ON. BED LOW, LOCKED, WILL CONTINUE TO MONITOR.
[2017-02-20 20:00] VITALS: BP_SYST 112
--- NOTE | 2017-02-20 20:30 | NUR ---
ADMINISTERED ALL ORDER MEDICATION, PT TOLERATED WELL. CALL LIGHT WITH IN REACH, WILL CONTINUE TO MONITOR.
--- NOTE | 2017-02-20 22:38 | NUR ---
RN ROUND: PT IN BED, AWAKE, ALERT AND ORIENTED X4, PT BREATHING EVEN AND NON LABORED IN ROOM AIR, VITAL STABLE, SKIN CLEAR, WARM AND DRY, DENIES ANY CHEST PAIN OR PRESSURE, DENIES ANY PAIN, IV ON LEFT FOREARM 20 G, INFUSING LR@ 80 ML/HR AT THIS TIME, INFUSING WELL, PT WITH SOME DRY COUGH ON AND OFF, SCD ON PLACE. CALL LIGHT WITH IN REACH, ENCOURAGE PT TO CALL NURSE BEFORE GETTING OUT OF BED, BED ALARM ON. BED LOW, LOCKED, WILL CONTINUE TO MONITOR.
[2017-02-21 00:03] VITALS: BP_SYST 117
--- NOTE | 2017-02-21 01:29 | NUR ---
NOTE: PT SLEEPING, EASILY AWAKE. PT BREATHING EVEN AND NON LABORED IN ROOM AIR, VITAL STABLE, SKIN CLEAR, WARM AND DRY, DENIES ANY CHEST PAIN OR PRESSURE, DENIES ANY PAIN, IV ON LEFT FOREARM 20 G, INFUSING LR@ 80 ML/HR AT THIS TIME, INFUSING WELL, PT WITH SOME DRY COUGH ON AND OFF, SCD ON PLACE. CALL LIGHT WITH IN REACH, ENCOURAGE PT TO CALL NURSE BEFORE GETTING OUT OF BED, BED ALARM ON. BED LOW, LOCKED, WILL CONTINUE TO MONITOR.
[2017-02-21] MEDS: IPRATROPIUM/ALBUTEROL SULFATE 3 ML AMPUL.NEB INH SCH ×3 (03:00→11:00)
[2017-02-21] MEDS: GABAPENTIN 300 MG CAPSULE PO SCH ×3 (03:31→11:50)
[2017-02-21] MEDS: METHOCARBAMOL 500 MG TABLET PO SCH ×3 (03:32→11:50)
[2017-02-21] MEDS: HYDROcodone/ACETAMIN 10-325 MG TAB PO SCH ×3 (03:32→11:51)
--- NOTE | 2017-02-21 03:37 | NUR ---
PAIN MEDICATION/RN ROUND: PT IN BED, AWAKE, ALERT AND ORIENTED X4, PT BREATHING EVEN AND NON LABORED IN ROOM AIR, VITAL STABLE, SKIN CLEAR, WARM AND DRY, DENIES ANY CHEST PAIN OR PRESSURE, C/O BACK PAIN 04/06, ADMINISTERED SCHEDULE MEDICATION AND SLEEPING PILL PT REQUESTED. IV ON LEFT FOREARM 20 G, INFUSING LR@ 80 ML/HR AT THIS TIME, INFUSING WELL, PT WITH SOME DRY COUGH ON AND OFF, SCD ON PLACE. CALL LIGHT WITH IN REACH, ENCOURAGE PT TO CALL NURSE BEFORE GETTING OUT OF BED, BED ALARM ON. BED LOW, LOCKED, WILL CONTINUE TO MONITOR. PT'S FAMILY AT BEDSIDE.
[2017-02-21 04:07] VITALS: BP_SYST 152
--- NOTE | 2017-02-21 06:10 | NUR ---
PAIN MEDICATION/RN ROUND: PT IN BED, AWAKE, ALERT AND ORIENTED X4, PT BREATHING EVEN AND NON LABORED IN ROOM AIR, VITAL STABLE, DENIES ANY CHEST PAIN OR PRESSURE, C/O BACK PAIN 04/06, ADMINISTERED SCHEDULE MEDICATION. WILL REASSESS. IV ON LEFT FOREARM 20 G, INFUSING LR@ 80 ML/HR AT THIS TIME, INFUSING WELL, PT WITH SOME DRY COUGH ON AND OFF, SCD ON PLACE. CALL LIGHT WITH IN REACH, ENCOURAGE PT TO CALL NURSE BEFORE GETTING OUT OF BED, BED ALARM ON. BED LOW, LOCKED, WILL CONTINUE TO MONITOR. PT'S FAMILY AT BEDSIDE.
[2017-02-21] MEDS: LR 1,000 ML IV SCH (06:23)
--- NOTE | 2017-02-21 07:30 | NUR ---
rn notes: patient is aao x 4. afebrile. vss stable. lungs bilaterally with diminished breath sounds. abdomen soft and non distended. has iv access on the left foreram #20 LR 80cc/hr infusing on well. call lights within reach. safety measures maintained. bed in low position. informed patient to call for assistance. no pain nor distress noted.
--- NOTE | 2017-02-21 07:35 | NUR ---
CARE ENDORSE TO KRIS RN, PT STABLE, NO DISTRESS. ALL NEEDS ATTENDED THROUGHOUT SHIFT.
[2017-02-21 07:49] LABS: BASOPHILS # (AUTO) 0.1 K/uL (0.0-0.2); BASOPHILS % (AUTO) 0.8 % (0.0-2.0); EOSINOPHILS # (AUTO) 0.2 K/uL (0.0-0.4); EOSINOPHILS % (AUTO) 1.8 % (0.0-4.0); HEMATOCRIT 42.1 % (36-54); HEMOGLOBIN 14.1 g/dL (14.0-18.0); LYMPHOCYTES # (AUTO) 2.4 K/uL (1.0-5.5); LYMPHOCYTES % (AUTO) 26.4 % (20.5-51.5); MEAN CORPUSCULAR HEMOGLOBIN 31 pg (27-31); MEAN CORPUSCULAR HGB CONC 34 % (32-36); MEAN CORPUSCULAR VOLUME 93 fL (79.0-98.0); MONOCYTES # (AUTO) 0.7 K/uL (0.0-1.0); MONOCYTES % (AUTO) 7.1 % (1.7-9.3); NEUTROPHILS # (AUTO) 5.8 K/uL (1.8-7.7); NEUTROPHILS % (AUTO) 63.9 % (40.0-70.0); PLATELET COUNT (AUTO) 339 K/uL (130-430); RED BLOOD CELL COUNT(AUTO) 4.53 MIL/uL (4.2-6.2); RED CELL DISTRIBUTION WIDTH 15.4 % (9.0-15.0); WHITE BLOOD COUNT (AUTO) 9.2 K/uL (4.8-10.8)
[2017-02-21 08:01] VITALS: BP_SYST 134
[2017-02-21 08:03] LABS: CALCIUM 7.9 mg/dL (8.4-11.0); CREATININE 1.11 mg/dL (0.55-1.30)
--- NOTE | 2017-02-21 08:34 | NUR ---
patient is still asleep. no pain nor distress noted. at the bedside.
--- NOTE | 2017-02-21 08:48 | NUR ---
URINE SENT FOR URINALYSIS.
--- NOTE | 2017-02-21 09:00 | NUR ---
watching tv. no pain nor distress noted.
[2017-02-21] MEDS ORDERED: CYANOCOBALAMIN 1000 MCG/ML VIAL IM ONE ×2 (09:45)
[2017-02-21 09:49] LABS: BILIRUBIN,URINE NEGATIVE (NEGATIVE); BLOOD, URINE NEGATIVE (NEGATIVE); CLARITY/URINE CLEAR (CLEAR); COLOR,URINE YELLOW (YELLOW); GLUCOSE,URINE NEGATIVE (NEGATIVE); KETONES,URINE TRACE (NEGATIVE); LEUKOCYTE ESTERASE ,URINE NEGATIVE (NEGATIVE); NITRITE, URINE NEGATIVE (NEGATIVE); PH,URINE 5.5 (5.0-8.0); PROTEIN URINE NEGATIVE (NEGATIVE); UROBILINOGEN,URINE 0.2 (0.2-1.0)
[2017-02-21] MEDS: PANTOPRAZOLE SODIUM 40 MG/VIAL (PROTONIX) IVP SCH (09:52)
[2017-02-21] MEDS: CHOLECALCIFEROL (VITAMIN D3) 2,000 UNIT TABLET PO SCH (09:53)
[2017-02-21] MEDS: POTASSIUM CHLORIDE 20 MEQ TAB.PRT.SR PO SCH (09:53)
[2017-02-21] MEDS: MULTIVITAMINS TAB 1 TABLET PO SCH (09:53)
[2017-02-21] MEDS: SERTRALINE HCL 50 MG TABLET PO SCH (09:53)
[2017-02-21] MEDS: LACTOBACILLUS RHAMNOSUS GG 1 CAP CAPSULE PO SCH (09:53)
--- NOTE | 2017-02-21 10:00 | NUR ---
due medication given at this time.
[2017-02-21 10:13] LABS: FREE T4 (FREE THYROXINE) 0.7 ng/dL (0.6-1.6); THYROID STIMULATING HORMONE 2.04 uIu/mL (0.34-4.82)
--- NOTE | 2017-02-21 11:00 | NUR ---
robaxin, norco po given. with water. at the bedside.
[2017-02-21 11:21] VITALS: BP_SYST 130
--- NOTE | 2017-02-21 11:30 | NUR ---
went to radiology to schedule Ultrasound of thyroid and Ct Abdomen/pelvis by Saturday next week. and follow up with Dr dennis the second week.
--- NOTE | 2017-02-21 12:00 | NUR ---
scds id band removed. saline lock removed.
--- NOTE | 2017-02-21 12:17 | NUR ---
patient left in stable. condition refused to have a wheelchair, prefers to walk.
[2017-02-21 12:32] VITALS: BP_SYST 125
== END 2017-02-21 12:17 | disposition home or self-care (01) | DRG 192 ==
LOC: SMU 15:10
PROVIDERS: ADMIT Internal Medicine; ATTEND Internal Medicine
PROC: 0DB68ZX Excision of Stomach, Via Natural or Artificial Opening Endoscopic, Diagnostic (ICD-10-PCS; 2017-02-20)
PROC: 0DB98ZX Excision of Duodenum, Via Natural or Artificial Opening Endoscopic, Diagnostic (ICD-10-PCS; principal; 2017-02-20 13:00)
DX: J44.0 Chronic obstructive pulmonary disease with (acute) lower respiratory infection (principal); J44.1 Chronic obstructive pulmonary disease with (acute) exacerbation; F17.200 Nicotine dependence, unspecified, uncomplicated; G89.4 Chronic pain syndrome; J20.9 Acute bronchitis, unspecified; E87.6 Hypokalemia; M54.9 Dorsalgia, unspecified; F32.9 Major depressive disorder, single episode, unspecified; K27.9 Peptic ulcer, site unspecified, unspecified as acute or chronic, without hemorrhage or perforation; K29.70 Gastritis, unspecified, without bleeding; E04.9 Nontoxic goiter, unspecified; K29.80 Duodenitis without bleeding; K44.9 Diaphragmatic hernia without obstruction or gangrene; R63.4 Abnormal weight loss; R68.81 Early satiety; Z88.6 Allergy status to analgesic agent; Z88.1 Allergy status to other antibiotic agents; Z88.5 Allergy status to narcotic agent; Z87.01 Personal history of pneumonia (recurrent); Z79.899 Other long term (current) drug therapy
CPT/HCPCS: 36415; 43239; 71250-TC; 80048; 80053; 81003; 82306; 82533; 82607; 83036; 83690-TC; 83735-TC; 83880; 84439; 84443-TC; 85025; 87040-TC; 87070-TC; 87081; 87205-TC; 88305; 88312; 88313; 94640; 94760; C9113; J1956; J2175; J2250; J3420; J3475; J3480; J7050; J7120

== ENCOUNTER 2017-07-24 08:55 | Outpatient (CLI) | payer BC | END 2017-07-24 20:34 | disposition home or self-care (01) | LOC: SRD 08:55 | PROVIDERS: ATTEND Internal Medicine | DX: J18.9 Pneumonia, unspecified organism (principal) | CPT/HCPCS: 71020-TC ==

== ENCOUNTER 2017-09-10 08:36 | Outpatient (CLI) | payer BC | END 2017-09-10 20:53 | disposition home or self-care (01) | LOC: SUS 08:36 | PROVIDERS: ATTEND Internal Medicine | DX: R94.4 Abnormal results of kidney function studies (principal) | CPT/HCPCS: 76770 ==

== ENCOUNTER 2017-12-04 16:17 | Inpatient (IN) | payer BC ==
[~2017-12-04] VITALS: Ht 170.2 cm; Wt 74.8 kg
[2017-12-04 17:06] VITALS: BP_SYST 130
[2017-12-04] MEDS ORDERED: IBUPROFEN 400 MG TABLET PO PRN (17:15)
[2017-12-04 17:19] VITALS: BP_SYST 130
[2017-12-04] MEDS ORDERED: traMADol HCL HCL 50 MG TABLET (ULTRAM) PO PRN ×2 (17:30)
[2017-12-04 17:45] LABS: EOSINOPHILS % (AUTO) 0.2 % (0.0-4.0); MEAN CORPUSCULAR HGB CONC 33 % (32-36); MEAN CORPUSCULAR VOLUME 96 fL (79.0-98.0)
[2017-12-04 17:59] LABS: BASOPHILS # (AUTO) 0.1 K/uL (0.0-0.2); BASOPHILS % (AUTO) 1.8 % (0.0-2.0); HEMOGLOBIN 13.6 g/dL (14.0-18.0); LYMPHOCYTES # (AUTO) 0.7 K/uL (1.0-5.5); LYMPHOCYTES % (AUTO) 11.3 % (20.5-51.5); MEAN CORPUSCULAR HEMOGLOBIN 31 pg (27-31); MONOCYTES # (AUTO) 0.7 K/uL (0.0-1.0); MONOCYTES % (AUTO) 11.4 % (1.7-9.3); NEUTROPHILS # (AUTO) 4.9 K/uL (1.8-7.7); NEUTROPHILS % (AUTO) 75.3 % (40.0-70.0); PLATELET COUNT (AUTO) 359 K/uL (130-430); RED BLOOD CELL COUNT(AUTO) 4.36 MIL/uL (4.2-6.2); RED CELL DISTRIBUTION WIDTH 15.3 % (9.0-15.0); WHITE BLOOD COUNT (AUTO) 6.4 K/uL (4.8-10.8)
[2017-12-04 18:04] LABS: CALCIUM 8.7 mg/dL (8.4-11.0); CREATININE 0.85 mg/dL (0.55-1.30); POTASSIUM 3.8 mmol/L (3.5-5.1)
[2017-12-04 18:08] LABS: ALBUMIN 3.3 g/dL (3.4-4.8); TOTAL BILIRUBIN 0.4 mg/dL (0.0-1.0)
[2017-12-04 18:16] VITALS: BP_SYST 130
[2017-12-04] MEDS: IPRATROPIUM/ALBUTEROL SULFATE 3 ML AMPUL.NEB INH SCH ×2 (19:02→23:16)
[2017-12-04 20:10] VITALS: BP_SYST 130
[2017-12-04] MEDS: HYDROcodone/ACETAMIN 10-325 MG TAB PO SCH (20:36)
[2017-12-04] MEDS: OSELTAMIVIR PHOSPHATE 75 MG CAPSULE PO SCH (20:37)
[2017-12-04] MEDS: PANTOPRAZOLE SODIUM 40 MG TAB PO SCH (20:37)
[2017-12-04] MEDS: METHOCARBAMOL 500 MG TABLET PO SCH (20:37)
[2017-12-04] MEDS: GABAPENTIN 300 MG CAPSULE PO SCH (20:46)
[2017-12-04] MEDS: D5LR 1,000 ML IV SCH (20:47)
[2017-12-05 00:09] VITALS: BP_SYST 127
[2017-12-05] MEDS: HYDROcodone/ACETAMIN 10-325 MG TAB PO SCH ×7 (00:17→22:49)
[2017-12-05] MEDS: GABAPENTIN 300 MG CAPSULE PO SCH ×6 (00:18→22:49)
[2017-12-05] MEDS: METHOCARBAMOL 500 MG TABLET PO SCH ×7 (00:18→22:57)
[2017-12-05] MEDS: IPRATROPIUM/ALBUTEROL SULFATE 3 ML AMPUL.NEB INH SCH ×5 (03:30→23:51)
[2017-12-05 06:38] LABS: BASOPHILS % (AUTO) 0.8 % (0.0-2.0); EOSINOPHILS % (AUTO) 0.6 % (0.0-4.0); HEMATOCRIT 41.9 % (36-54); LYMPHOCYTES % (AUTO) 19.8 % (20.5-51.5); MEAN CORPUSCULAR HEMOGLOBIN 32 pg (27-31); MEAN CORPUSCULAR HGB CONC 34 % (32-36); MEAN CORPUSCULAR VOLUME 96 fL (79.0-98.0); MONOCYTES # (AUTO) 0.7 K/uL (0.0-1.0); MONOCYTES % (AUTO) 13.7 % (1.7-9.3); NEUTROPHILS # (AUTO) 3.4 K/uL (1.8-7.7); NEUTROPHILS % (AUTO) 65.1 % (40.0-70.0); PLATELET COUNT (AUTO) 339 K/uL (130-430); RED BLOOD CELL COUNT(AUTO) 4.35 MIL/uL (4.2-6.2); RED CELL DISTRIBUTION WIDTH 14.9 % (9.0-15.0); WHITE BLOOD COUNT (AUTO) 5.1 K/uL (4.8-10.8)
[2017-12-05 08:00] VITALS: BP_SYST 139
[2017-12-05 08:25] LABS: CALCIUM 8.5 mg/dL (8.4-11.0); CREATININE 0.71 mg/dL (0.55-1.30); POTASSIUM 3.8 mmol/L (3.5-5.1)
[2017-12-05] MEDS: PANTOPRAZOLE SODIUM 40 MG TAB PO SCH ×2 (09:22→21:26)
[2017-12-05] MEDS: OSELTAMIVIR PHOSPHATE 75 MG CAPSULE PO SCH ×2 (09:23→21:26)
[2017-12-05] MEDS: SERTRALINE HCL 50 MG TABLET PO SCH (09:23)
[2017-12-05 09:57] LABS: ERYTHROCYTE SEDIMENTATION RATE 16 MM/HR (0-15)
[2017-12-05] MEDS: D5LR 1,000 ML IV SCH ×3 (11:44→22:50)
[2017-12-05 12:42] VITALS: BP_SYST 127
[2017-12-05 16:30] VITALS: BP_SYST 145
[2017-12-05 21:22] VITALS: BP_SYST 129
[2017-12-06] VITALS: BP_SYST 132
[2017-12-06] MEDS: GABAPENTIN 300 MG CAPSULE PO SCH ×6 (03:48→23:19)
[2017-12-06] MEDS: HYDROcodone/ACETAMIN 10-325 MG TAB PO SCH ×6 (03:48→23:19)
[2017-12-06] MEDS: METHOCARBAMOL 500 MG TABLET PO SCH ×6 (03:48→23:19)
[2017-12-06] MEDS: IPRATROPIUM/ALBUTEROL SULFATE 3 ML AMPUL.NEB INH SCH ×6 (03:51→22:53)
[2017-12-06 06:35] LABS: BASOPHILS % (AUTO) 0.4 % (0.0-2.0); EOSINOPHILS % (AUTO) 0.4 % (0.0-4.0); HEMOGLOBIN 14.6 g/dL (14.0-18.0); LYMPHOCYTES % (AUTO) 15.6 % (20.5-51.5); MEAN CORPUSCULAR HEMOGLOBIN 32 pg (27-31); MEAN CORPUSCULAR HGB CONC 33 % (32-36); MEAN CORPUSCULAR VOLUME 95 fL (79.0-98.0); MONOCYTES # (AUTO) 0.5 K/uL (0.0-1.0); MONOCYTES % (AUTO) 7.9 % (1.7-9.3); NEUTROPHILS # (AUTO) 4.9 K/uL (1.8-7.7); NEUTROPHILS % (AUTO) 75.7 % (40.0-70.0); PLATELET COUNT (AUTO) 340 K/uL (130-430); RED BLOOD CELL COUNT(AUTO) 4.63 MIL/uL (4.2-6.2); RED CELL DISTRIBUTION WIDTH 15.1 % (9.0-15.0); WHITE BLOOD COUNT (AUTO) 6.4 K/uL (4.8-10.8)
[2017-12-06 06:53] LABS: CALCIUM 8.6 mg/dL (8.4-11.0); CREATININE 0.81 mg/dL (0.55-1.30); POTASSIUM 3.2 mmol/L (3.5-5.1)
[2017-12-06 08:00] VITALS: BP_SYST 135
[2017-12-06] MEDS: OSELTAMIVIR PHOSPHATE 75 MG CAPSULE PO SCH ×2 (10:17→20:56)
[2017-12-06] MEDS: PANTOPRAZOLE SODIUM 40 MG TAB PO SCH ×2 (10:17→20:56)
[2017-12-06] MEDS: SERTRALINE HCL 50 MG TABLET PO SCH (10:17)
[2017-12-06] MEDS: D5LR 1,000 ML IV SCH (10:19)
[2017-12-06 12:00] VITALS: BP_SYST 137
[2017-12-06] MEDS ORDERED: BISACODYL 5 MG TABLET.DR (DULCOLAX) PO PRN (13:30)
[2017-12-06] MEDS ORDERED: DOCUSATE SODIUM 250 MG CAPSULE PO ONE (13:30)
[2017-12-06 16:46] VITALS: BP_SYST 141
[2017-12-06] MEDS ORDERED: LEVOFLOXACIN 500 MG/D5W 100 ML IV SCH (18:00)
[2017-12-06 21:00] VITALS: BP_SYST 131
[2017-12-06] MEDS: DOCUSATE SODIUM 250 MG CAPSULE PO SCH (21:00)
[2017-12-06] MEDS ORDERED: POTASSIUM CHLORIDE 20 MEQ TAB.PRT.SR PO ONE (21:30)
[2017-12-06 23:38] VITALS: BP_SYST 142
[2017-12-07] MEDS ORDERED: IPRA3AMP9 NEB (00:37)
[2017-12-07] MEDS ORDERED: LEVO500T20 PO (00:39)
[2017-12-07] MEDS ORDERED: DULERA (01:01)
[2017-12-07] MEDS: IPRATROPIUM/ALBUTEROL SULFATE 3 ML AMPUL.NEB INH SCH ×3 (02:54→11:00)
[2017-12-07] MEDS: GABAPENTIN 300 MG CAPSULE PO SCH ×3 (03:19→10:35)
[2017-12-07] MEDS: HYDROcodone/ACETAMIN 10-325 MG TAB PO SCH ×3 (03:20→10:35)
[2017-12-07] MEDS: METHOCARBAMOL 500 MG TABLET PO SCH ×3 (03:22→10:35)
[2017-12-07 04:06] LABS: % FREE PSA 27.5 % (.); FREE PSA 0.22 ng/mL; PROSTATE SPECIFIC AG TOTAL 0.8 ng/mL (0.0-4.0)
[2017-12-07 08:00] VITALS: BP_SYST 132
[2017-12-07] MEDS: DOCUSATE SODIUM 250 MG CAPSULE PO SCH (09:00)
[2017-12-07] MEDS ORDERED: POTASSIUM CHLORIDE 20 MEQ TAB.PRT.SR PO SCH (09:00)
[2017-12-07] MEDS: PANTOPRAZOLE SODIUM 40 MG TAB PO SCH (09:14)
[2017-12-07] MEDS: OSELTAMIVIR PHOSPHATE 75 MG CAPSULE PO SCH (09:14)
[2017-12-07] MEDS: SERTRALINE HCL 50 MG TABLET PO SCH (09:14)
[2017-12-07 09:33] VITALS: BP_SYST 132
[2017-12-07 11:30] VITALS: BP_SYST 137
[2017-12-07 12:11] VITALS: BP_SYST 137
== END 2017-12-07 12:40 | disposition home or self-care (01) | DRG 190 ==
LOC: SMU 16:40
PROVIDERS: ADMIT Internal Medicine; ATTEND Internal Medicine
DX: J44.0 Chronic obstructive pulmonary disease with (acute) lower respiratory infection (principal); J18.9 Pneumonia, unspecified organism; I11.0 Hypertensive heart disease with heart failure; I50.9 Heart failure, unspecified; E86.0 Dehydration; J44.1 Chronic obstructive pulmonary disease with (acute) exacerbation; F17.200 Nicotine dependence, unspecified, uncomplicated; G89.4 Chronic pain syndrome; M47.9 Spondylosis, unspecified; J11.1 Influenza due to unidentified influenza virus with other respiratory manifestations; Z80.41 Family history of malignant neoplasm of ovary
CPT/HCPCS: 36415; 71046-TC; 80048; 80053; 80061; 82306; 83036; 83605; 83735-TC; 83880; 84153; 85025; 85651-TC; 86710; 87040-TC; 93005; 93306; 94640; 94760; G9035; J1956; J7120

== ENCOUNTER 2017-12-29 20:53 | Emergency (ER) | payer BC ==
[~2017-12-29] VITALS: Ht 167.6 cm; Wt 72.6 kg
[2017-12-29 20:53] VITALS: BP_SYST 94
[~2017-12-29 20:53] MED LIST changes: +DULERA; +IPRA3AMP9 NEB; +LEVO500T20 PO
[2017-12-29 23:00] VITALS: BP_SYST 113
== END 2017-12-29 23:00 | disposition home or self-care (01) ==
LOC: SED 20:53
DX: R09.02 Hypoxemia (principal); J44.9 Chronic obstructive pulmonary disease, unspecified; I10 Essential (primary) hypertension; F17.210 Nicotine dependence, cigarettes, uncomplicated; Z71.6 Tobacco abuse counseling; Z88.1 Allergy status to other antibiotic agents; Z88.5 Allergy status to narcotic agent; Z88.6 Allergy status to analgesic agent
CPT/HCPCS: 36415; 36600; 71045; 82803-TC; 86710; 93005; 99285